=== PATIENT | female | born 1965 | race Caucasian/White ===

== ENCOUNTER 2016-10-23 15:48 | Inpatient (IN) | payer OTHER ==
--- NOTE | ~2016-10-23 | CO ---
Unit #: [id number] #: [id number] Patient: MELINA FUENTES [id number] [address] [place], [place] [address] [id number] I MR#: [id number] NAME: MELINA FUENTES ROOM: 571 Age: 51 Sex: F Admission Date: 10/23/2016 : 1965 Attending Physician: Salomon Clement M.D. Primary Care Physician: Tania Saavedra Aprn CONSULTATION REPORT ADDITIONAL REFERRING PHYSICIAN Dr. Salomon Clement. REASON FOR CONSULTATION History of left knee replacement surgery followed by left lower extremity bypass surgery for injured popliteal artery, now with bilateral small PE. HISTORY OF PRESENT ILLNESS Ms. Fuentes is well-known to us, who is a 51-year-old female with recent history of revision of left knee replacement surgery. She was subsequently found to have injury to her popliteal artery and required a vein bypass graft to resume normal flow to the left lower extremity. She was discharged on Coumadin and had been doing well at home and been taking her medications as prescribed with INR values ranging between 2 and 3. She was told on Wednesday night that her INR was close to 3, so she was asked to hold her Coumadin and resume her Coumadin on Wednesday with a value of 5 mg. She was at home on 10/23/2016, where she began to have issues with some shortness of breath. She had no significant chest pain and no back pain. She came back to the emergency room and on further workup, had a CTA of the chest showing small bilateral pulmonary embolism. She reports no excessive swelling in her legs and reports no trauma to her legs recently. She reports being in compliance with her movement and rehabilitation. She reports her medications have been taken on a daily basis. She has no fevers or chills and denies any other current issues. She was seen in the bed today without oxygen breathing normally. She appeared to be in no distress. PAST MEDICAL HISTORY 1. Hypertension. 2. Hyperlipidemia. 3. Obesity. 4. Sleep apnea. 5. Asthma. 6. Fibromyalgia. PAST SURGICAL HISTORY 1. Bilateral knee replacements. 2. Left superficial femoral artery to below-knee popliteal artery bypass with vein. 3. Salpingectomy. 4. Renal stents. 5. Gastric sleeve. Unit #: [id number] #: [id number] Patient: MELINA FUENTES MEDICATIONS Xanax 1 mg nightly, Savella 50 mg b.i.d., vilazodone 40 mg daily, melatonin 10 mg daily, Flexeril 10 mg t.i.d., Movantik 25 mg as needed daily. ALLERGIES Oxycodone and Celebrex. FAMILY HISTORY Positive for coronary artery disease in her father. SOCIAL HISTORY She is disabled. She is a nonsmoker. She is a nondrinker. REVIEW OF SYSTEMS Per the HPI. The remainder of a 14-point review of systems is negative per question. PHYSICAL EXAMINATION VITAL SIGNS: Temperature 98.4, respirations 18, pulse 82, blood pressure 101/65. GENERAL APPEARANCE: The patient is a well-groomed, well-developed individual appearing her stated age, in no distress. Answering questions appropriately. HEENT: Pupils are equal, round, and reactive to light and accommodation. Extraocular movements are intact. Mucous membranes are moist. No intraoral or intramucosal lesions or infections. NECK: Supple. No JVD. No carotid bruits. Trachea is midline. Thyroid is midline without enlargement. HEART: S1 and S2. Regular rate and rhythm. No murmurs. LUNGS: Clear to auscultation bilaterally. No wheezing or crackles. ABDOMEN: Soft, obese, nontender, nondistended. Positive bowel sounds. No abdominal masses or hernias are noted. VASCULAR: Positive radial, femoral, and pedal pulses bilateral. Left lower extremity incisions are well healed and intact with Steri-Strips in place. There was no erythema. LYMPHATICS: No lymphadenopathy of the cervical or femoral chain. SKIN: No skin lesions, wound ulcerations, or dermatologic changes. MUSCULOSKELETAL: No soft tissue masses or bony deformities. There was no limb length or limb circumference abnormalities bilaterally. PSYCHIATRIC: Alert and oriented x3. NEUROLOGIC: Cranial nerves II through XII are intact. Normal strength and sensation in all extremities. DIAGNOSTIC STUDIES IMAGING STUDIES: CTA of the chest performed on 10/23/2016 reviewed by me personally showing small bilateral tertiary branch pulmonary artery embolism. No other abnormalities identified. IMPRESSION AND PLAN Ms. Melina Fuentes with bilateral lower extremity pulmonary embolism, history of left knee replacement surgery, and left lower extremity bypass. Ms. Fuentes was told based on our evaluation, that she will continue on her heparin and current anticoagulation. I have ordered an ultrasound of the lower extremities to evaluate for deep venous thrombosis. Should she have significant deep venous thrombosis, she may benefit from an IVC filter, likely removable. If the filter is to be done, she will need to Unit #: [id number] #: [id number] Patient: MELINA FUENTES be transferred to [facility] as the Interventional Radiology suite at [facility] is currently nonfunctional. Ms. Fuentes was agreeable with the plan as discussed and had the remainder of her questions answered to her satisfaction. Thank you for having us to see Ms. Fuentes. If you have any questions, do not hesitate to contact us. Dictated by... Sienna Phelps M.D. FREDY/eyal TD: 10/24/2016 09:51 JOB #: [id number] CONSULTATION REPORT X Sienna Phelps MD X CONSULTATION REPORT
--- NOTE | ~2016-10-23 | CO ---
Unit #: [id number] #: [id number] Patient: ASIA FUENTES [id number] [address] [place], [place] [address] [id number] I MR#: [id number] NAME: ASIA FUENTES ROOM: 571 Age: 51 Sex: F Admission Date: 10/23/2016 : 1965 Attending Physician: Salomon Clement M.D. Primary Care Physician: Tania Saavedra Aprn CONSULTATION REPORT HISTORY OF PRESENT ILLNESS Ms. Fuentes is a very pleasant lady with diagnosis of pulmonary embolus. The story is, she is a 51-year-old lady with a history of multiple surgeries in the past. She underwent a gastric bypass 5 to 6 years ago and she has had multiple knee surgeries secondary to obesity. She has not had any injury or sports injury or car wreck that has caused problem with knees, but just knees has been worn out. She recently had a knee revision of the left knee on 10/05/[address] Dumont, also had a left popliteal occlusion and had a left popliteal bypass. She was discharged home on 10/12/2016 on Coumadin. She had an INR 3 to 4 days ago that was up to 3.0 and her Coumadin doses were held and she was supposed to take a dose on Wednesday, but she developed worsening shortness of breath and came into the emergency room. She was found in the ER on CT scan, a small nonocclusive thrombi bilaterally, was admitted to the hospital and she is on treatment currently with heparin. She still is short of breath and has not noticed a change in her breathing yet, but she has been relatively not moving a lot currently. PAST MEDICAL HISTORY Significant; 1. For recent revision of the left knee surgery. She has had bilateral knee surgeries. She had a left popliteal artery occlusion with ischemia and has had a [id number]-[id number] bypass with reversal saphenous vein. 2. Hypertension. 3. Hyperlipidemia. 4. History of gastric sleeve. 5. History of sleep apnea in the past, not on CPAP. 6. History of exercise-induced asthma. 7. Panic attacks. 8. Chronic arthritis. 9. She has had now pulmonary embolus. SOCIAL HISTORY No tobacco use ever. No drug use ever. No alcohol use ever. She is . She has two children. FAMILY HISTORY No history of clotting; although, her father did have open heart surgery at age 60. ALLERGIES To codeine and Celebrex. MEDICATIONS Unit #: [id number] #: [id number] Patient: BROTHERS,ASIA DARLING Listed on the chart, but brief will be reviewed here. Melatonin, Viibryd, Savella, [place], alprazolam, Zyrtec, vitamin D, Colace, Flexeril, Lasix, Coumadin which has been held this admission, ferrous sulfate, and Movantik. She is not on B12 or folate replacement, has not been on that for several years post her gastric surgery. REVIEW OF SYSTEMS 1. Short of breath. 2. Some panic attacks. 3. Chronic arthritis. 12-point review of systems is otherwise negative. PHYSICAL EXAMINATION VITAL SIGNS: Shows a temperature of 97 degrees, heart rate 78, respirations 16, blood pressure 116/66, 100% sats on room air. HEENT: Her eyes show pupils are equal, round, and reactive to light. Mouth is moist. Hearing is intact. NECK: Supple. No JVD. Trachea midline. LUNGS: Clear today. Equal breath sounds. HEART: Regular rate and rhythm. EXTREMITIES: Trace edema and 1+ edema in the legs, symmetric. Feet are both warm and no swelling other than just a little bit of edema as we noted of significance. LYMPHATICS: She has no cervical or supraclavicular adenopathy. ABDOMEN: Soft. No tenderness. SKIN: She has no rashes, ulcers, or nodules today. NEUROLOGIC: Cranial nerves II through XII are intact. She reports no focal deficits. No numbness. PSYCHIATRIC: Anxious today. Certainly you can tell that she has anxiety disorder, but makes good eye contact and is appropriate today. Remainder of the 12-point physical exam is negative. DIAGNOSTIC STUDIES LABORATORY RESULTS: Have been reviewed and in brief when she came into the hospital, she had an INR of 2.1 and she had a PTT that was prolonged at 39.4. I wonder in this young lady about since she had a clot on Coumadin and she had remained therapeutic and she also had a recent arterial thrombus, antiphospholipid antibody in her. I think this could be a bit difficult to test for that for the lupus anticoagulant part since she is on heparin. I think that it would be reasonable to go ahead and look at switching her over to Xarelto and we can get that provided for her and we need to do a formal testing for the antibody panel for antiphospholipid antibodies and for anticardiolipin. The lupus anticoagulant, 2 part, dRVVT and the hexagonal phase can be messed with heparin, so I think once we get the patient switched over to Xarelto, we should try to get a coagulation based studies on that to see if indeed she has a lupus anticoagulant. The reason I would be very important is that she would need to continue on aspirin a day with the coagulation cascade blockade. ASSESSMENT A very pleasant lady with both arterial and venous clots recently with pulmonary embolus. PLAN 1. I think Xarelto would be an excellent choice for her. 2. I think that she needs to be on platelet blockade as well and an Unit #: [id number] #: [id number] Patient: ASIA FUENTES aspirin a day would be appropriate. I would like to thank you for the patient. If you have any questions, please feel free to contact me. Dictated by... Jose Schwartz M.D. NOAH/eyal TD: 10/24/2016 18:20 JOB #: [id number] CONSULTATION REPORT X X CONSULTATION REPORT
--- NOTE | ~2016-10-23 | DS ---
Unit #: [id number] #: [id number] Patient: ASIA FUENTES [id number] [address] [address] [id number] I MR#: [id number] NAME: ASIA FUENTES ROOM: 57 Age: 51 Sex: F Admission Date: 10/23/2016 : 1965 Discharge Date: 10/25/2016 Attending Physician: Salomon Clement M.D. Primary Care Physician: Tania Saavedra, Freelance Writer DISCHARGE SUMMARY PRINCIPAL DIAGNOSES 1. Bilateral peripheral pulmonary embolism despite therapeutic Coumadin. 2. Recent left total knee revision. 3. Hypertension. 4. Seasonal allergies. 5. Morbid obesity. 6. Depression. 7. Insomnia. 8. Iron deficiency anemia. 9. Recent left leg arterial occlusion. 10. Obstructive sleep apnea. 11. Fibromyalgia. 12. Exercise-induced asthma. CONSULTANTS 1. Dr. Phelps, vascular surgery. 2. Dr. Schwartz, hematology. DIAGNOSTIC STUDIES IMAGING: Bilateral lower extremity venous Doppler, which was negative for DVT. CT angiogram of the chest on October 23, 2016 with small nonocclusive thrombi in the pulmonary arterial branches to the lower lobes bilaterally without evidence of PE or right heart strain. CARDIOVASCULAR: Two-dimensional echocardiogram without evidence of right ventricular strain. Ejection fraction was normal. CLINICAL HISTORY AND HOSPITAL COURSE Ms. Fuentes is a nice 51-year-old female with a recent left knee revision who presented to the emergency department with new dyspnea on exertion and chest pain. Please refer to H and P for further details. CT angiogram of the chest done in the emergency department revealed multiple bilateral small pulmonary emboli. The patient was admitted and placed on a heparin drip. Further discussion with the patient indicates she had a left leg arterial occlusion postoperatively, for which she was seen by Dr. Phelps, and Dr. Phelps was consulted. Bilateral lower extremity venous Doppler was negative, and arterial occlusion appeared stable both clinically and on testing. Further discussion with the patient indicates that her Coumadin had been therapeutic postoperatively, and she had been placed on bridging Lovenox Unit #: [id number] #: [id number] Patient: ASIA FUENTES for a short period, which she had been taking. For this reason, I asked Dr. Schwartz to evaluate the patient, and hypercoagulable workup has been initiated. Today the patient is clinically stable. She is not having any hypoxia. She has minimal dyspnea on exertion, and blood counts appear stable. She would like to attend her father's ; thus, I am going to arrange for discharge and medications as outlined below. DISCHARGE CONDITION Stable. DISCHARGE STATUS Discharge to home. DISCHARGE MEDICATIONS 1. Xarelto 15 mg p.o. b.i.d. for 21 days, then change to 20 mg p.o. daily. 2. Tylenol 500 mg p.o. q.4-6 hours p.r.n. pain. 3. Viibryd 40 mg daily. 4. Zyrtec 10 mg daily. 5. Alprazolam 1 mg at bedtime. 6. Colace 100 mg p.o. t.i.d. 7. Lasix 20 mg p.o. daily p.r.n. swelling. 8. Movantik 20 mg daily p.r.n. constipation. 9. Ferrous gluconate 324 mg b.i.d. 10. Melatonin 10 mg at bedtime. 11. [place] 10/325 mg 1 tablet p.o. q.4 hours p.r.n. pain. 12. Flexeril 10 mg p.o. t.i.d. 13. Vitamin D2 - 50,000 units p.o. weekly on Mondays. 14. Savella 50 mg p.o. b.i.d. DISCHARGE INSTRUCTIONS Patient was instructed to follow a heart healthy diet. She can increase her activity as tolerated. We have discussed 12 hour dosing of Xarelto and taking with meals. FOLLOW-UP Patient will follow up with Dr. Schwartz in 2 weeks. She will receive results of hypercoagulable workup at that time, which currently includes antiphospholipid antibody, anticardiolipin, factor V Leiden testing, prothrombin gene mutation, MTHFR mutation. NOTE: Time spent on discharge - 33 minutes. Dictated by... Lenka Dee M.D. TEJA/melanie TD: 10/26/2016 08:50 JOB #: [id number] Unit #: [id number] #: [id number] Patient: ASIA FUENTES DISCHARGE SUMMARY X Lenka Dee MD X DISCHARGE SUMMARY
--- NOTE | ~2016-10-23 | HP ---
Unit #: [id number] #: [id number] Patient: ASIA MILES [id number] [facility] [address] [facility]. [place], [place] [address] [id number] I MR#: [id number] NAME: ASIA MILES ROOM: 571 Age: 51 Sex: F Admission Date: 10/23/2016 : 1965 Attending Physician: Salomon Clement M.D. Primary Care Physician: Tania Saavedra Aprn HISTORY AND PHYSICAL CHIEF COMPLAINT Shortness of breath. HISTORY OF PRESENT ILLNESS This is a 51-year-old white female, who has history of hypertension, dyslipidemia, exercise-induced asthma, panic attacks, anxiety, depression, and fibromyalgia. She is admitted here from 10/05/16 to 10/12/16, in the [facility]. She underwent revision of left knee on 10/05/[address] Dumont and she was also found to have left popliteal occlusion and required popliteal bypass eventually. She was discharged home on 10/12/16 on Coumadin. She said that she had been having some shortness of breath and dyspnea and chest pain with deep breath and she called Dr. Dumont. She was sent to the emergency room. In the emergency room, on workup, she was found to have, on CT scan, small non-occlusive thrombi bilaterally and eventually been admitted, and she said she had been having chest pain with deep breath but no fever, no chills, no cough, no other complaint. PAST MEDICAL HISTORY 1. History of recent left total knee revision. 2. History of left popliteal artery occlusion with ischemia. 3. History of left lower extremity above knee to below knee bypass with reversal of saphenous vein. 4. Hypertension. 5. Hyperlipidemia. 6. History of obesity with history of gastric sleeve. 7. History of obstructive sleep apnea in the past, not on CPAP. 8. History of exercise-induced asthma. 9. Panic attacks. 10. Fibromyalgia. PAST SURGICAL HISTORY 1. Multiple bilateral total knee replacement. 2. Bilateral knee revision. 3. Uterine ablation. 4. History of salpingectomy secondary to ectopic . 5. History of renal stent. 6. Cholecystectomy. 7. Liposuction. 8. History of gastric sleeve placement. SOCIAL HISTORY The patient was disabled. She never smoked. She denies any illicit drug use. Unit #: [id number] #: [id number] Patient: BROTHERS,ASIA DARLING FAMILY HISTORY Father had history of open heart surgery at 60. ALLERGIES Codeine and Celebrex. HOME MEDICATIONS Is the followin. Movantik 25 mg daily 2. Ferrous sulfate 324 mg twice a day 3. Coumadin 7.5 mg daily 4. Lasix 20 mg daily 5. Flexeril 10 mg three times a day 6. Colace 100 mg daily 7. Vitamin D 50,000 units weekly 8. Zyrtec 10 mg daily 9. Alprazolam 1 mg at bedtime 10. [place] 10/325 one tablet q.8h p.r.n. 11. Savella 50 mg twice a day 12. Viibryd 40 mg daily 13. Melatonin 10 mg at bedtime REVIEW OF SYSTEMS Twelve point review of systems negative except as above in the history of present illness. PHYSICAL EXAMINATION GENERAL: Middle-aged female lying in the bed comfortably, currently not in any distress. She is alert, awake, and oriented x3, comfortable, not in any distress. VITAL SIGNS: Current vitals are the following, temperature 91.6, heart rate 78, respiratory rate 16, and blood pressure is 116/66, and oxygen 100% on room air. HEENT EXAMINATION: Pupils equally reactive to light and accommodation. Head: Normocephalic and atraumatic. NECK: Supple. No jugular venous distention. HEART: S1 and S2, regular rate and rhythm. No murmur. No gallop. LUNGS: Clear to auscultation bilaterally. ABDOMEN: Soft, nontender, and nondistended. Bowel sounds are positive. EXTREMITIES: Inspection normal. No cyanosis, no clubbing, or no edema. NEUROLOGIC: No focal neurologic deficit. DIAGNOSTIC STUDIES LABORATORY: Laboratory workup is the following, Urinalysis is negative. Troponin less than 0.05, INR is 2.1. Chemistries, sodium 139, potassium 3.3, chloride 98, glucose 113, BUN 23, creatinine 1, LFT, alkaline phosphatase 111, otherwise normal. Magnesium 1.9, BNP is 10. White count 8.5, hemoglobin 10, hematocrit 32, and platelets 622, troponin less than 0.05. IMAGING: CT chest, PE protocol shows small non-occlusive thrombi bilaterally, 3 mm noncalcified right upper lung nodule. ASSESSMENT/PLAN 1. Bilateral pulmonary embolism on Coumadin, INR therapeutic, will continue heparin drip, and will ask surgery to evaluate. 2. Mild hypokalemia, replace. Unit #: [id number] #: [id number] Patient: BROTHERS,ASIA DARLING 3. History of recent left total knee revision. 4. History of left popliteal artery occlusion with ischemia. 5. History of recent left lower extremity bypass. 6. Hypertension. 7. History of hyperlipidemia. 8. History of exercise-induced asthma. 9. History of fibromyalgia. 10. History of panic attack and anxiety/depression. Dictated by Gege Logan/ross TD: 10/24/2016 11:04 JOB #: [id number] HISTORY AND PHYSICAL X X HISTORY AND PHYSICAL
--- NOTE | ~2016-10-23 | CT16 ---
[facility] A Service of [facility] RADIOLOGY TEXT RESULTS PATIENT: AISA MILES LOCATION: [facility] 571-01 : [birth year] UNIT #: [id number] AGE: [address]: Salomon Clement MD SEX: F ORDER DR: [id number] [facility] [address] [facility]. [place], [place] [address] [id number] I MR#: [id number] Acc #: [id number] NAME: ASIA MILES : 1965 SEX: F STUDY DATE/TIME: 10/23/2016 18:04 UNIT: [facility] ROOM: [facility] STUDY DESCRIPTION: CT Angio Chest for PE Attending Physician: Salomon Clement M.D. Ordering Physician: Berta Gaytan M.D. Primary Care Physician: Tania Saavedra Aprn MEDICAL IMAGING REPORT This report is preliminary unless electronic signature is present EXAM CT angiogram of the chest INDICATIONS Shortness of breath and chest tightness for 1 week. Patient has a history of right knee replacement October 05, 2015. TECHNIQUE Axial CT images were obtained from the thoracic inlet through the dome of the diaphragm following administration of intravenous contrast material. Following this, 3-D reformatted images were obtained. This CT exam was performed with one or more of the following radiation dose reduction techniques: automatic exposure control, adjustment of mA and/or kV according to patient size, and iterative reconstruction. FINDINGS This patient has non-occlusive thrombi seen within the pulmonary arterial branches within the lower lobes bilaterally. This is a new finding compared to the October 10, 2016 examination. There is no evidence of pulmonary infarction and I do not see any evidence of right heart strain. The thyroid gland contains dystrophic calcifications on the right. The trachea and esophagus appear unremarkable. There are postsurgical changes involving the stomach. There is no pleural or pericardial effusion. Mediastinal and hilar lymph nodes do not appear pathologically enlarged. Thoracic aorta is normal in caliber. Exam was not optimized for evaluation of the thoracic aorta but I do not see any convincing evidence of dissection. A stable 3 mm nodule is seen within the right upper lobe adjacent to the fissure. No acute abnormalities are seen within the upper abdomen. [facility] A Service of [facility] RADIOLOGY TEXT RESULTS PATIENT: ASIA MILES LOCATION: [facility] 571-01 : [birth year] UNIT #: [id number] AGE: [address]: Salomon Clement MD SEX: F ORDER DR: The bony windows badillo not demonstrate any aggressive osseous abnormalities. IMPRESSION 1. Small non-occlusive thrombi are seen within pulmonary arterial branches to the lower lobes bilaterally without evidence of pulmonary infarction or right heart strain. THis was discussed with the patient's physician immediately following this dictation. 2. 3 mm noncalcified pulmonary nodule seen in the right upper lobe is nonspecific. It is most likely benign but I would suggest a followup CT in 12 months to document stability or resolution. Dictated by... Leslie Maynard M.D. THIS IS AN ELECTRONICALLY VERIFIED REPORT Leslie Maynard M.D. at 10/26/2016 1:17 PM AFF/pcl TD: 10/23/2016 23:44 JOB #: [id number] MEDICAL IMAGING REPORT COPY
--- NOTE | ~2016-10-23 | EKG ---
PATIENT: ASIA MILES UNIT #: [id number] Ventricular Rate: 89 BPM Atrial Rate: 89 BPM P-R Interval: 138 ms QRS Duration: 80 ms Q-T Interval: 370 ms QTC Calculation(Bezet): 450 ms P [place]: 27 degrees Calculated R [place]: -5 degrees Calculated T [place]: 19 degrees Diagnosis Line: Normal sinus rhythm Diagnosis Line: Moderate voltage criteria for LVH, may be normal Diagnosis Line: variant Diagnosis Line: Borderline ECG Diagnosis Line: When compared with ECG of 10-OCT-2016 06:10, Diagnosis Line: No significant change was found Diagnosis Line: Confirmed by RYAN GRIGGS MD ([id number]) on Diagnosis Line: 10/25/2016 10:21:26 PM INTERPRETING : TORI
[~2016-10-23 15:48] MED LIST: ACETAMINOPHEN PO; ALPRAZOLAM1 MG PO; CETIRIZINE HCL10 MG PO; COUMADIN PO; DOK100 MG PO; FERROUS GL324 ( 36 ) PO; FLEXERIL10 MG PO; LASIX20 MG PO; MELATONIN10 M1 PO; MOVANTIK25 MG; NORCO 10/3251 TAB; SAVELLA50 MG PO; VIIBRYD40 MG PO; VITAMIN D250000 UNIT PO
[2016-10-23 15:57] LABS: BASOPHIL% 0.2 % (0-2.5); EOSINOPHIL# 0.4 X10e3 (0-0.7); EOSINOPHIL% 4.5 % (0.0-7.0); HEMATOCRIT 32.5 % (35.0-45.0); HEMOGLOBIN 10.9 gm/dL (12.0-16.0); LYMPHOCYTE# 3.3 X10e3 (1.0-3.5); LYMPHOCYTE% 39.5 % (17.0-45.0); MEAN CELL VOLUME 92.7 FL (83-96); MEAN CORPUSCULAR HEMOGLOBIN 31.1 PG (28-34); MEAN CORPUSCULAR HGB CONC 33.6 g/dL (30-36); MEAN PLATELET VOLUME 8.4 FL (6.5-11.5); MONOCYTE# 0.5 X10e3 (0-1.0); MONOCYTE% 6.5 % (3.0-12.0); NEUTROPHIL# 4.2 X10e3 (1.5-7.1); NEUTROPHIL% 49.3 % (40-75); PLATELET COUNT 622 X10e3 (140-420); RED BLOOD COUNT 3.51 X10e (3.90-5.30); RED CELL DISTRIBUTION WIDTH 14.2 % (11.0-15.5); WHITE BLOOD COUNT 8.5 X10e3 (4.0-10.5)
[2016-10-23 15:59] LABS: POC - CKMB <1.0 ng/mL (0.0-7.9); POC - TROPONIN <0.05 ng/mL (<=0.05)
[2016-10-23 16:02] LABS: DIFF IND NO
[2016-10-23 16:32] LABS: ALBUMIN SERUM 4.1 g/dL (3.5-5.0); ALKALINE PHOSPHATASE 111 U/L (32-92); ALT (SGPT) 15 U/L (10-40); AST (SGOT) 29 U/L (10-42); BILIRUBIN, DIRECT 0.1 mg/dL (0.0-0.2); BILIRUBIN,INDIRECT 0.4 mg/dL (0.0-0.9); BILIRUBIN,TOTAL 0.5 mg/dL (0.2-2.0); BLOOD UREA NITROGEN 23 mg/dL (9-23); CALCIUM SERUM 9.1 mg/dL (8.4-10.2); CARBON DIOXIDE 29 mmol/L (22-31); CHLORIDE 98 mmol/L (100-111); GLOM FILT RATE Estimated ABOVE60 mL/min (>60); GLUCOSE FASTING 113 mg/dL (70-110); MAGNESIUM 1.9 mg/dL (1.6-3.0); POTASSIUM 3.3 mmol/L (3.5-5.1); PROTEIN TOTAL SERUM 7.7 g/dL (6.0-8.3); SODIUM 139 mmol/L (135-145)
[2016-10-23 17:11] LABS: INR 2.1; PARTIAL THROMBOPLASTIN TIME 39.4 SECONDS (23.5-31.3)
[2016-10-23 18:58] LABS: POC - CKMB <1.0 ng/mL (0.0-7.9); POC - TROPONIN <0.05 ng/mL (<=0.05)
[2016-10-23 18:58] LABS: URINE SOURCE CLEAN CATCH
[2016-10-23 19:04] LABS: URINE APPEARANCE CLEAR; URINE BILIRUBIN NEG (NEG); URINE BLOOD NEG (NEG); URINE COLOR YELLOW; URINE GLUCOSE NEG (NEG); URINE KETONE NEG (NEG); URINE LEUKOCYTE ESTERASE NEG (NEG); URINE NITRATE NEG (NEG); URINE PH 5.5 (5-8); URINE PROTEIN NEG (NEG); URINE SPECIFIC GRAVITY 1.036 (1.003-1.035)
[2016-10-23 19:14] LABS: CULTURE INDICATED? NO
[2016-10-24 07:43] LABS: BASOPHIL# 0.1 X10e3 (0-0.3); BASOPHIL% 2.3 % (0-2.5); EOSINOPHIL# 0.3 X10e3 (0-0.7); EOSINOPHIL% 6.7 % (0.0-7.0); HEMATOCRIT 32.1 % (35.0-45.0); HEMOGLOBIN 10.4 gm/dL (12.0-16.0); LYMPHOCYTE% 41.2 % (17.0-45.0); MEAN CELL VOLUME 92.4 FL (83-96); MEAN CORPUSCULAR HEMOGLOBIN 29.8 PG (28-34); MEAN CORPUSCULAR HGB CONC 32.3 g/dL (30-36); MEAN PLATELET VOLUME 8.5 FL (6.5-11.5); MONOCYTE# 0.3 X10e3 (0-1.0); MONOCYTE% 6.9 % (3.0-12.0); NEUTROPHIL% 42.9 % (40-75); PLATELET COUNT 552 X10e3 (140-420); RED BLOOD COUNT 3.47 X10e (3.90-5.30); RED CELL DISTRIBUTION WIDTH 14.6 % (11.0-15.5); WHITE BLOOD COUNT 4.8 X10e3 (4.0-10.5)
[2016-10-24 07:46] LABS: DIFF IND NO
[2016-10-24 07:58] LABS: INR 1.7; PROTHROMBIN TIME (PATIENT) 18.7 SECONDS (9.6-11.5)
[2016-10-24 08:18] LABS: BLOOD UREA NITROGEN 15 mg/dL (9-23); BUN/CREATININE RATIO 18.75; CALCIUM SERUM 9.4 mg/dL (8.4-10.2); CARBON DIOXIDE 30 mmol/L (22-31); CHLORIDE 101 mmol/L (100-111); CREATININE SERUM 0.8 mg/dL (0.6-1.4); GLOM FILT RATE Estimated ABOVE60 mL/min (>60); GLUCOSE FASTING 92 mg/dL (70-110); POTASSIUM 4.1 mmol/L (3.5-5.1); SODIUM 139 mmol/L (135-145)
[2016-10-24 11:04] LABS: IRON SERUM 60 ug/dL (28-170); TOTAL IRON BINDING CAPACITY 356 ug/dL (269-535); TRANSFERRIN 254 mg/dL (192-382); TRANSFERRIN SATURATION 17 % (20-50)
[2016-10-24 16:45] LABS: FOLATE (FOLIC ACID) 20.4 ng/mL (>5.8)
[2016-10-25 05:31] LABS: HEMATOCRIT 32.7 % (35.0-45.0); HEMOGLOBIN 10.7 gm/dL (12.0-16.0); MEAN CORPUSCULAR HEMOGLOBIN 30.8 PG (28-34); MEAN CORPUSCULAR HGB CONC 32.7 g/dL (30-36); RED BLOOD COUNT 3.47 X10e (3.90-5.30); RED CELL DISTRIBUTION WIDTH 14.8 % (11.0-15.5); WHITE BLOOD COUNT 6.5 X10e3 (4.0-10.5)
[2016-10-25] MEDS ORDERED: XARELTO20 MG PO (11:12)
[2016-10-25] MEDS ORDERED: XARELTO (11:12)
[2016-10-25 12:23] LABS: INR 1.6
== END 2016-10-25 12:30 | disposition home health service (06) | DRG 176 ==
LOC: CED 15:48 → CEDOF 20:30 → C5C 23:16
PROVIDERS: Internal Medicine; Student in an Organized Health Care Education/Training Program
PROC: B32TYZZ Computerized Tomography (CT Scan) of Left Pulmonary Artery using Other Contrast (ICD-10-PCS; principal; 2016-10-23)
PROC: B32SYZZ Computerized Tomography (CT Scan) of Right Pulmonary Artery using Other Contrast (ICD-10-PCS; 2016-10-23)
DX: I26.99 Other pulmonary embolism without acute cor pulmonale (principal); E66.01 Morbid (severe) obesity due to excess calories; I10 Essential (primary) hypertension; F41.0 Panic disorder [episodic paroxysmal anxiety]; Z68.38 Body mass index [BMI] 38.0-38.9, adult; Z96.653 Presence of artificial knee joint, bilateral; G47.33 Obstructive sleep apnea (adult) (pediatric); M79.7 Fibromyalgia; Z82.49 Family history of ischemic heart disease and other diseases of the circulatory system; G47.00 Insomnia, unspecified; E87.6 Hypokalemia; J45.990 Exercise induced bronchospasm; Z98.84 Bariatric surgery status
CPT/HCPCS: 36415; 71275; 80048; 80076; 81003; 81240; 81241; 81291; 82306; 82553; 82607; 82746; 83540; 83550; 83735; 83880; 84484; 85025; 85027; 85610; 85730; 86146; 86147; 86148; 93005; 93970; 94760; 99285; J1644; Q9967